=== PATIENT | male | born 1995 | race Caucasian/White ===

== ENCOUNTER 2021-12-16 04:24 | Inpatient (IN) | payer OTHER ==
[~2021-12-16] VITALS: Ht 175.3 cm; Wt 76.5 kg
[2021-12-16] MEDS ORDERED: FLUO40CA PO (04:46)
[2021-12-16] MEDS ORDERED: TRAZ-252 PO (04:46)
[2021-12-16 05:34] LABS: BASO # 0.1 10^3/uL (0.0-0.2); BASO % 0.6 % (0.0-1.0); EOS % 0.1 % (0.0-3.0); HEMATOCRIT 45.4 % (42.0-52.0); HEMOGLOBIN 15.1 g/dl (13.5-17.5); LYMPH # 2.7 10^3/uL (1.5-5.0); LYMPH % 30.2 % (24.0-44.0); MEAN CORPUSCULAR HEMOGLOBIN 30.1 pg (27.0-33.0); MEAN CORPUSCULAR HGB CONC 33.3 g/dl (32.0-36.5); MEAN CORPUSCULAR VOLUME 90.4 fl (80.0-96.0); MONO # 0.5 10^3/uL (0.0-0.8); MONO % 5.9 % (2.0-8.0); NEUTROPHILS # 5.5 10^3/uL (1.5-8.5); NEUTROPHILS % 62.1 % (36.0-66.0); PLATELET COUNT, AUTOMATED 291 10^3/uL (150-450); RED BLOOD COUNT 5.02 10^6/uL (4.30-6.10); WHITE BLOOD COUNT 8.9 10^3/uL (4.0-10.0)
[2021-12-16 05:56] LABS: AMPHETAMINES LEVEL URINE NEGATIVE (NEGATIVE); BARBITURATES URINE NEGATIVE (NEGATIVE); BENZODIAZEPINES URINE NEGATIVE (NEGATIVE); CANNABINOIDS URINE NEGATIVE (NEGATIVE); COCAINE METABOLITE URINE NEGATIVE (NEGATIVE); METHADONE URINE NEGATIVE (NEGATIVE); OPIATES URINE NEGATIVE (NEGATIVE); PHENCYCLIDINE URINE NEGATIVE (NEGATIVE)
[2021-12-16 06:09] LABS: ACETAMINOPHEN LEVEL < 2.0 UG/ML (10.0-30.0); ALBUMIN 4.2 GM/DL (3.2-5.2); ALT/SGPT 74 U/L (12-78); BILIRUBIN,DIRECT < 0.1 MG/DL (0.0-0.2); BILIRUBIN,TOTAL 0.2 MG/DL (0.2-1.0); BLOOD UREA NITROGEN 14 MG/DL (7-18); CALCIUM LEVEL 9.1 MG/DL (8.5-10.1); CARBON DIOXIDE LEVEL 28 MEQ/L (21-32); CHLORIDE LEVEL 105 MEQ/L (98-107); CREATININE FOR GFR 1.08 MG/DL (0.70-1.30); ETHYL ALCOHOL (ETHANOL) 0.102 % (0.000-0.010); GLOMERULAR FILTRATION RATE > 60.0 (>60); GLUCOSE, FASTING 112 MG/DL (70-100); POTASSIUM SERUM 3.7 MEQ/L (3.5-5.1); SALICYLATE LEVEL < 1.7 MG/DL (5.0-30.0); SODIUM LEVEL 139 MEQ/L (136-145); TOTAL PROTEIN 7.6 GM/DL (6.4-8.2)
[2021-12-16 06:17] LABS: RSV AMPLIFICATION NEGATIVE (NEGATIVE)
[2021-12-16] MEDS ORDERED: HOME MED LIST COMPLETE! XX SCH (07:30)
[2021-12-16] MEDS ORDERED: ACETAMINOPHEN TAB 650MG DOSE (2X325MG) PO ONE (09:30)
[2021-12-17] MEDS ORDERED: traZODone 50 MG TAB PO PRN (13:40)
[2021-12-17] MEDS ORDERED: MOM 30ML SUSPENSION UDC PO PRN (13:40)
[2021-12-17] MEDS ORDERED: ACETAMINOPHEN TAB 650MG DOSE (2X325MG) PO PRN (13:40)
[2021-12-17] MEDS ORDERED: MAALOX 30 ML SUSP *UDC PO PRN (13:40)
[2021-12-17 16:42] VITALS: BP 126/81
[2021-12-18 06:21] VITALS: BP 121/69
[2021-12-18] MEDS ORDERED: traZODone 25MG PER 1/2 TABLET PO PRN (11:15)
[2021-12-18] MEDS: FLUoxetine 20MG CAP PO SCH (12:21)
[2021-12-18] MEDS ORDERED: NICOTINE 14 MG/24 HR TRANSDERMAL TD PRN (13:30)
[2021-12-19 06:27] VITALS: BP 120/65
[2021-12-19] MEDS: FLUoxetine 20MG CAP PO SCH (09:20)
[2021-12-19 18:30] VITALS: BP 138/76
[2021-12-20 06:00] VITALS: BP 140/78
[2021-12-20] MEDS ORDERED: FLUO40CA PO (08:22)
[2021-12-20] MEDS ORDERED: NICO14PA TD (08:22)
[2021-12-20] MEDS ORDERED: TRAZ-186 PO (08:22)
[2021-12-20] MEDS: FLUoxetine 20MG CAP PO SCH (08:46)
== END 2021-12-20 11:20 | disposition home or self-care (01) | DRG 885 ==
LOC: M ED 04:24 → M ED INP 12-17 13:39 → M PSY 12-17 15:51
PROVIDERS: ADMIT Psychiatry & Neurology Psychiatry; ATTEND Psychiatry & Neurology Psychiatry
DX: F32.0 Major depressive disorder, single episode, mild (principal); U07.1 COVID-19; F10.94 Alcohol use, unspecified with alcohol-induced mood disorder; R45.851 Suicidal ideations; F41.9 Anxiety disorder, unspecified; Z56.6 Other physical and mental strain related to work; F17.290 Nicotine dependence, other tobacco product, uncomplicated; Z79.899 Other long term (current) drug therapy; G47.00 Insomnia, unspecified; Z90.49 Acquired absence of other specified parts of digestive tract; R94.5 Abnormal results of liver function studies